=== PATIENT | male | born 1995 | race Caucasian/White ===

== ENCOUNTER 2017-10-06 06:04 | Emergency (ER) | payer OTHER ==
[2017-10-06 06:34] VITALS: BP 116/75
--- NOTE | 2017-10-06 06:52 | ED Physician Documentation ---
General Adult - HISTORIAN Historian: parent - HPI Stated Complaint: fever Chief Complaint: Fever Additional Information: he felt hot so we checked his temperature and he has a fever. this AM. no other complaints. He has autism but no other serious medical history. so unable to tell if he has other pain complaints etc. But no URI symptoms yet. Onset: hours Timing: still present Severity: mild Further Comments: no - ROS CONST: fever EYES/ENT: none CVS/RESP: none GI/: none MS/SKIN/LYMPH: none NEURO/PSYCH: denies: headache, fainting - PAST HX Past History: asthma Other History: seizure disorder Surgeries/Procedures: none Immunizations: denies: influenza Allergies/Adverse Reactions: Allergies Allergy/AdvReac Type Severity Reaction Status Date / Time ketamine AdvReac Hallucinati Verified 10/06/17 06:18 ons Home Medications: Ambulatory Orders Medication Instructions Recorded Diazepam [Valium] 5 mg PO PRN PRN 10/06/17 Divalproex Sodium [Depakote] 625 mg PO BID 10/06/17 Montelukast Sodium [Singulair] 10 mg PO D 10/06/17 Sertraline HCl [Zoloft] 50 mg PO D 10/06/17 - SOCIAL HX Smoking History: non-smoker Alcohol Use: none Drug Use: none - FAMILY HX Family History: No - VITAL SIGNS Vital Signs: Vital Signs Temp Pulse Resp BP Pulse Ox 99.2 F 120 H 18 116/75 95 10/06/17 06:05 10/06/17 06:05 10/06/17 06:05 10/06/17 06:05 10/06/17 06:05 - REVIEWED ASSESSMENTS Nursing Assessment Reviewed: Yes Vitals Reviewed: Yes Progress - Progress Progress: descibed the benefits and limitations of tamiflu and they want RX ED Results Lab/Radiology - Lab Results Lab Results: flu B (+) General Adult Physical Exam - PHYSICAL EXAM GENERAL APPEARANCE: no distress EENT: eye inspection normal, ENT inspection normal, no signs of dehydration NECK: normal inspection, supple. No: lymphadenopathy RESPIRATORY: no resp distress, breath sounds normal. No: wheezes, rales, rhonchi CVS: tachycardia ABDOMEN: soft SKIN: warm/dry, normal color EXTREMITIES: non-tender, normal range of motion, no evidence of injury NEURO: mood/affect nml Discharge Clincal Impression: Influenza B Referrals: Lang Hernandez MD [Primary Care Provider] - 2 Days Condition: Stable Disposition: 01 HOME, SELF-CARE Decision to Admit: NO Date of Decison to Admit: 10/06/17 Decision Time: 06:55
== END 2017-10-06 07:02 | disposition home or self-care (01) ==
LOC: ED 06:04
DX: J10.1 Influenza due to other identified influenza virus with other respiratory manifestations (principal); R50.9 Fever, unspecified
CPT/HCPCS: 87400; 99282